=== PATIENT | male | born 1985 | race African-American/Black ===

== ENCOUNTER 2018-04-14 10:23 | Emergency (ER) | payer SELFPAY ==
[2018-04-14] MEDS ORDERED: HYDROCODONE/ACETAMINOPHEN 5-325 MG (6 TAB/ER DISP) PO PRN (12:42)
--- NOTE | 2018-04-14 12:48 | ER Document Report ---
ED General - General Chief Complaint: Abscess Stated Complaint: POSSIBLE CYST Time Seen by Provider: 04/14/18 12:25 Mode of Arrival: Ambulatory Information source: Patient - HPI Notes: 33-year-old male presents the ED with complaints of left buttocks that started approximately 1 week ago. Reports pain is 6 out of 10, throbbing achy. Has not tried any heat, ibuprofen or Tylenol. Worse with time, nothing makes better. Patient states he had a similar event happened approximately 10 years ago, but cannot remember what he did for him. Denies fevers, chills, chest pain,palpitations, shortness of breath, dyspnea, nausea, vomiting, diarrhea, abdominal pain, hematuria,blurred vision, double vision, loss of vision, speech changes, LH, dizziness, syncope, headaches, wheezing, ST, URI, neck pain, weakness, bowel or bladder dysfunction, saddle anesthesia, numbness or tingling in bilateral upper or lower extremities equally, muscle paralysis, weakness in bilateral upper or lower extremities equally or rash. Denies IV drug use. - Related Data Allergies/Adverse Reactions: No Known Allergies Allergy (Verified 04/14/18 10:27) Past Medical History - General Information source: Patient - Social History Smoking Status: Current Every Day Smoker Frequency of alcohol use: Heavy Drug Abuse: Marijuana Family History: Reviewed & Not Pertinent Patient has suicidal ideation: No Patient has homicidal ideation: No - Past Medical History Cardiac Medical History: Denies: Hx Hypertension Renal/ Medical History: Denies: Hx Peritoneal Dialysis - Immunizations Hx Diphtheria, Pertussis, Tetanus Vaccination: No Review of Systems - Review of Systems Constitutional: No symptoms reported EENT: No symptoms reported Cardiovascular: No symptoms reported Respiratory: No symptoms reported Gastrointestinal: No symptoms reported Genitourinary: No symptoms reported Male Genitourinary: No symptoms reported Musculoskeletal: No symptoms reported Skin: See HPI Hematologic/Lymphatic: No symptoms reported Neurological/Psychological: No symptoms reported Physical Exam - Vital signs Vitals: Temp Pulse Resp BP Pulse Ox 98.8 F 75 14 145/90 H 99 04/14/18 10:32 04/14/18 10:32 04/14/18 10:32 04/14/18 10:32 04/14/18 10:32 - Notes Notes: PHYSICAL EXAMINATION: GENERAL: Well-appearing, well-nourished and in no acute distress. HEAD: Atraumatic, normocephalic. EYES: Pupils equal round and reactive to light, extraocular movements intact, sclera anicteric, conjunctiva are normal. ENT: Nares patent, oropharynx clear without exudates. Moist mucous membranes. NECK: Normal range of motion, supple without lymphadenopathy LUNGS: Breath sounds clear to auscultation bilaterally and equal. No wheezes rales or rhonchi. HEART: Regular rate and rhythm without murmurs ABDOMEN: Soft, nontender, nondistended abdomen. No guarding, no rebound. No masses appreciated. Musculoskeletal: Normal range of motion, no pitting or edema. No cyanosis. NEUROLOGICAL: Cranial nerves grossly intact. Normal speech, normal gait. Normal sensory, motor exams PSYCH: Normal mood, normal affect. SKIN: Warm, Dry, normal turgor, no rashes or lesions noted. Left buttocks approx [id number] area of induration, warmth to touch. no fluctuance noted. no surrounding erythema or lymphadenopathy. No open wounds or drainage. Course - Re-evaluation Re-evalutation: 04/14/18 12:53 33-year-old male who is afebrile, vitals stable and in no distress presents for evaluation of a cellulitis to his left buttocks. Noted induration with some erythema, no fluctuance. No surrounding lymphadenopathy or erythema. No open wounds. Discussed with patient the importance of applying heat 20 minutes on 20 minutes several times a day, taking antibiotics as directed patient will be given [place]ona to be going home with. Discussed with patient the importance of not driving, drinking alcohol or operate heavy machinery while taking medication. I have reevaluated this patient multiple times and no significant life threatening changes, no signs of toxicity, sepsis or peritonitis are noted. The patient and I have discussed the diagnosis and risks, and we agree with discharging home and close follow-up. We also discussed returning to the Emergency Department immediately if new or worsening symptoms occur with the understanding that symptoms and presentations can change. At this time will discharge with return precautions and follow-up recommendations. Verbal discharge instructions given a the bedside and opportunity for questions given. We have discussed the symptoms which are most concerning (e.g., saddle anesthesia, urinary or bowel incontinence or retention, changing or worsening pain) that necessitate immediate return. Medication warnings reviewed. All questions and concerns answered by this provider. Patient is in agreement with this plan and has verbalized understanding of return precautions and the need for primary care follow-up in the next 24-72 hours. Patient verbalized understanding of plan of care and agree with plan of care. - Vital Signs Vital signs: Temp Pulse Resp BP Pulse Ox 98.8 F 75 14 145/90 H 99 04/14/18 10:32 04/14/18 10:32 04/14/18 10:32 04/14/18 10:32 04/14/18 10:32 Discharge - Discharge Clinical Impression: Cellulitis and abscess of buttock Condition: Stable Disposition: HOME, SELF-CARE Instructions: Cephalexin ([facility]), Trimethoprim-Sulfa ([facility]), Oral Narcotic Medication ([facility]) Additional Instructions: CELLULITIS: You have an infection of your skin and underlying soft tissues called cellulitis. This is due to bacteria, which can enter through any break in the skin, or even through an irritated hair follicle. Untreated, cellulitis will usually worsen. Antibiotics are required. Usually, warm packs or warm soaks, and elevation of the infected area are recommended. You should start getting better within 24 to 36 hours. Most infections respond quickly to the right medication. Follow-up care is important, however, to check for abscess (boil) formation, unsuspected foreign body, or resistant infection. If you develop fever, chills, or if the area of infection is becoming rapidly more swollen or painful, call the doctor at once. ANTIBIOTIC THERAPY: You have been given an antibiotic prescription. It's important that you take all the medication, unless instructed otherwise by your physician. Failure to complete the entire course can result in relapse of your condition. Common side effects of antibiotics include nausea, intestinal cramping, or diarrhea. Women may develop vaginal yeast infections, and babies can get yeast (thrush) in the mouth following the use of antibiotics. Contact your physician if you develop significant side effects from this medication. Allergy to this antibiotic can result in hives, wheezing, faintness, or itching. If symptoms of allergy occur, stop the medication and call the doctor. TRIMETHOPRIM-SULFA: You have been given a prescription for trimethoprim-sulfa (TMS, Septra, Bactrim). This is a combination antibiotic of the sulfa class, often used for urinary tract infections, middle ear infections, bronchitis, shigella intestinal infection, and Pneumocystis pneumonia. TMS is usually well-tolerated. Occasional side effects include nausea and decreased appetite. Septra is not recommended for infants less than two months of age. Do not take this medication if you have experienced severe side effects or allergy to sulfa medicine. You should stop this medicine at once and contact your physician if you develop any rash, joint pain, shortness of breath, bruising, or jaundice ( yellow color in the skin), or if you develop any other new or unusual symptoms. ORAL NARCOTIC MEDICATION: You have been given a prescription for pain control. This medication is a narcotic. It's best taken with food, as nausea can result if taken on an empty stomach. Don't operate machinery or drive within six hours of taking this medication. Do not combine this medicine with alcohol, or with any medication which can cause sedation (such as cold tablets or sleeping pills) unless you get permission from the physician. Narcotics tend to cause constipation. If possible, drink plenty of fluids and eat a diet high in fiber and fruits. Please be aware that prescription narcotics also have the potential for abuse. People become addicted to these medications because of the general sense of wellbeing that they induce. This feeling along with a significant reduction in tension, anxiety, and aggression provides a stimulating seductive quality to these drugs. Once your pain is under control, we encourage you to discard your unused narcotics. Apply heat 20 minutes on 20 minutes off several times a day. Do not drive, drink or operate heavy machinery while taking pain medication. Eat yogurt daily to prevent loose stool. Follow-up with your doctor within 1-2 days. Return to the ED if your symptoms become worse. FOLLOW-UP CARE: If you have been referred to a physician for follow-up care, call the physician s office for an appointment as you were instructed or within the next two days. If you experience worsening or a significant change in your symptoms, notify the physician immediately or return to the Emergency Department at any time for re-evaluation. Return immediately for any new or worsening symptoms. Follow up with primary care provider, call tomorrow to make followup appointment. Referrals: LUIS,NO [Primary Care Provider] - Follow up as needed CASPER TODD MD [COMMUNITY BASED STAFF] - Follow up in 3-5 days
[2018-04-14 13:42] VITALS: BP 137/95
== END 2018-04-14 13:42 | disposition home or self-care (01) ==
LOC: ER 10:23
DX: L03.317 Cellulitis of buttock (principal); L02.31 Cutaneous abscess of buttock; F17.200 Nicotine dependence, unspecified, uncomplicated; F12.10 Cannabis abuse, uncomplicated
CPT/HCPCS: 99282

== ENCOUNTER 2018-04-16 11:21 | Emergency (ER) | payer SELFPAY ==
[2018-04-16] MEDS ORDERED: LIDOCAINE 1% INJ-PF (10 MG/ML) 30 ML SDV INJ ONE (11:51)
--- NOTE | 2018-04-16 13:11 | ER Document Report ---
ED General - General Chief Complaint: Abscess Stated Complaint: SKIN ISSUE Time Seen by Provider: 04/16/18 11:37 Mode of Arrival: Ambulatory Information source: Patient Notes: Patient is a 33-year-old male who presents to the ER today for worsening of abscess and cellulitis to the right buttock. Patient was here 2 days ago, given Bactrim and Keflex and is currently taking not but states that his abscess to the top of his buttock is getting worse, more painful. He denies any drainage, history of MRSA. He has had an abscess in this exact same place at the top of his buttock before that was drained 7 years ago. He does not know if it is a pilonidal. He denies fevers or chills. TRAVEL OUTSIDE OF THE [place] IN LAST 30 DAYS: No - Related Data Allergies/Adverse Reactions: No Known Allergies Allergy (Verified 04/16/18 11:22) Past Medical History - General Information source: Patient - Social History Smoking Status: Unknown if Ever Smoked Family History: Reviewed & Not Pertinent Patient has suicidal ideation: No Patient has homicidal ideation: No - Past Medical History Cardiac Medical History: Denies: Hx Hypertension Renal/ Medical History: Denies: Hx Peritoneal Dialysis - Immunizations Hx Diphtheria, Pertussis, Tetanus Vaccination: No Review of Systems - Review of Systems Constitutional: No symptoms reported EENT: No symptoms reported Cardiovascular: No symptoms reported Respiratory: No symptoms reported Gastrointestinal: No symptoms reported Genitourinary: No symptoms reported Male Genitourinary: No symptoms reported Musculoskeletal: No symptoms reported Skin: See HPI Hematologic/Lymphatic: No symptoms reported Neurological/Psychological: No symptoms reported Physical Exam - Vital signs Vitals: Temp Pulse Resp BP Pulse Ox 98.6 F 80 16 145/88 H 97 04/16/18 11:25 04/16/18 11:25 04/16/18 11:25 04/16/18 11:25 04/16/18 11:25 - Notes Notes: PHYSICAL EXAMINATION: GENERAL: Uncomfortable appearing, but in no acute distress. HEAD: Atraumatic, normocephalic. EYES: Pupils equal round and reactive to light, extraocular movements intact, sclera anicteric, conjunctiva are normal. NECK: Normal range of motion, supple without lymphadenopathy LUNGS: CTAB and equal. No wheezes rales or rhonchi. HEART: Regular rate and rhythm without murmurs EXTREMITIES: Normal range of motion, no pitting edema. No cyanosis. NEUROLOGICAL: Cranial nerves grossly intact. Normal sensory/motor exams. PSYCH: Normal mood, normal affect. SKIN: Warm, Dry, normal turgor, large area of induration, approximately 5 cm x 4 cm to the right buttocks at the gluteal cleft, approximately 3 cm of fluctuance overlying the center, exquisitely tender, warm to the touch Course - Re-evaluation Re-evalutation: 04/16/18 15:53 Abscess was incised and drained successfully, wound culture is pending at this time. - Vital Signs Vital signs: Temp Pulse Resp BP Pulse Ox 98.1 F 75 16 144/87 H 100 04/16/18 13:32 04/16/18 13:32 04/16/18 11:25 04/16/18 13:32 04/16/18 13:32 Procedures - Incision and Drainage Right Buttock Time completed: 14:30 Type: Simple Anesthetic type: 1% Lidocaine mL's of anesthetic: 4 Blade size: 11 I&D procedure: Betadine prep applied Incision Method: Incision made by scalpel Amount/type of drainage: malodorous copious pus Discharge - Discharge Clinical Impression: Cellulitis and abscess of buttock Condition: Stable Disposition: HOME, SELF-CARE Instructions: Abscess ([facility]), Cephalexin ([facility]), Oral Narcotic Medication ([facility]), Post Incision and Drainage, Trimethoprim-Sulfa ([facility]) Additional Instructions: Return immediately for any new or worsening symptoms. Follow up with primary care provider, call tomorrow to make followup appointment. Please return in 2 days to have wound looked at and packing removed if the packing has not fallen out on its own already. Prescriptions: Hydrocodone/Acetaminophen [[place] 5-325 mg Tablet] 1 tab PO Q4 PRN #15 tablet PRN Reason: Forms: Return to Work
[2018-04-16] MEDS ORDERED: HYDROCODONE/ACETAMINOPHEN 5-325 MG TABLET PO ONE (13:12)
[2018-04-16 13:33] VITALS: BP 144/87
== END 2018-04-16 13:42 | disposition home or self-care (01) ==
LOC: ER 11:21
DX: L02.31 Cutaneous abscess of buttock (principal); L03.317 Cellulitis of buttock
CPT/HCPCS: 87070; 87075; 87077; 87205; 99283

== ENCOUNTER 2019-09-26 15:46 | Emergency (ER) | payer SELFPAY ==
--- NOTE | 2019-09-26 16:01 | ER Document Report ---
HPI - HPI Time Seen by Provider: 09/26/19 15:58 Pain Level: 5 Notes: Otherwise healthy 34-year-old male presenting with right foot pain after he states he accidentally kicked a fixed object this morning. He reports pain to the front and dorsal aspect of the right foot. Denies taking any medications for symptoms. He is able to ambulate on the foot. - REPRODUCTIVE Reproductive: DENIES: : Past Medical History - General Information source: Patient - Social History Smoking Status: Current Every Day Smoker Chew tobacco use (# tins/day): No Frequency of alcohol use: Heavy Drug Abuse: Marijuana Family History: Reviewed & Not Pertinent Patient has suicidal ideation: No Patient has homicidal ideation: No - Medical History Medical History: Negative - Past Medical History Cardiac Medical History: Denies: Hx Hypertension Renal/ Medical History: Denies: Hx Peritoneal Dialysis Surgical Hx: Negative - Immunizations Hx Diphtheria, Pertussis, Tetanus Vaccination: No Vertical Provider Document - CONSTITUTIONAL Notes: PHYSICAL EXAMINATION: GENERAL: Well-appearing, well-nourished and in no acute distress. HEAD: Atraumatic, normocephalic. EYES: Pupils equal round extraocular movements intact, conjunctiva are normal. ENT: Nares patent NECK: Normal range of motion LUNGS: No respiratory distress Musculoskeletal: Normal range of motion, no swelling, ecchymosis or erythema noted to right foot, strong dorsalis pedis pulse, cap refill less than 3 seconds. NEUROLOGICAL: Normal speech, normal gait. PSYCH: Normal mood, normal affect. SKIN: Warm, Dry, normal turgor, no rashes or lesions noted. - INFECTION CONTROL TRAVEL OUTSIDE OF THE [place] IN LAST 30 DAYS: No Course - Re-evaluation Re-evalutation: Foot X-Ray 09/26/19 16:00 IMPRESSION: NEGATIVE STUDY OF THE RIGHT FOOT. NO RADIOGRAPHIC EVIDENCE OF ACUTE INJURY. X-ray was negative for any acute findings. Patient only discharged home at this time. Discussed ED return precautions. - Vital Signs Vital signs: Temp Pulse Resp BP Pulse Ox 98.1 F 89 18 146/88 H 99 09/26/19 15:49 09/26/19 15:49 09/26/19 15:49 09/26/19 15:49 09/26/19 15:49 Procedures - Immobilization Right foot Immobilizer type: Crutches, Post-op shoe Discharge - Discharge Clinical Impression: Foot contusion Qualifiers: Encounter type: initial encounter Laterality: unspecified laterality Qualified Code(s): S90.30XA - Contusion of unspecified foot, initial encounter Condition: Stable Disposition: HOME, SELF-CARE Additional Instructions: Contusion Your injury has resulted in a contusion -- a crushing of the deep tissues. No injury to important structures was detected during the physician's exam. Contusions vary in the amount of pain they cause, and in the length of time required for healing. Typically, the area will become bruised, and will remain painful to touch for two or three weeks. However, most patients are back to working and playing within a few days. After the initial period of rest and cold-packs, your symptoms (together with the doctor's recommendations) will determine how rapidly you can get back to full activity. Usually this means "do what feels okay, but don't do things that hurt." If re-examination was recommended, it's important to follow up as instructed. Call the doctor or return any time if pain increases, if swelling becomes severe, if you develop numbness or weakness in an injured extremity, or if any other alarming symptoms occur. Ice & Elevation Apply ice packs frequently against the painful area. Many different schedules are recommended, such as "20 minutes on, 20 minutes off" or "one hour ice, two hours rest." If you need to work, you may need to go longer between ice treatments. You should plan to have the area ice packed AT LEAST one-fourth of the time. The ice should be applied over the wrap, tape, or splint, or over a layer of cloth -- not directly against the skin. Some ice bags have a built-in cloth and can be put directly on the skin. Your injured part should be elevated as much as possible over the next 48 hours. Try to keep the injury above the level of the heart. Avoid use of the injured area. Elevation and rest will decrease the swelling. Ibuprofen Ibuprofen is an excellent, safe drug for pain control. In addition, it has potent antiinflammatory effects which are beneficial, especially in the treatment of injuries, arthritis, or tendonitis. It's best to take ibuprofen with food. Persons with ulcer disease or allergy to aspirin should notify their physician of this before taking ibuprofen. Take the medication exactly as prescribed. Don't take additional doses unless instructed to do so by your doctor. If you develop wheezing, shortness of breath, hives, faintness, stomach pain, vomiting, or dark black stools, return for re-evaluation at once. The x-rays were negative for any fracture or dislocation. Please take ibuprofen [id number] as directed to help with pain and inflammation. Follow-up with Ortho if not improving over the next week. Forms: Return to Work Referrals: ROSA ISELA BLUNT JR, DO [ACTIVE PROVISIONAL STAFF] - Follow up as needed
--- NOTE | 2019-09-26 16:47 | RADIOLOGY REPORT (SQ) ---
EXAM DESCRIPTION: FOOT RIGHT COMPLETE COMPLETED DATE/TIME: 09/26/2019 4:26 pm REASON FOR STUDY: kicked a couch COMPARISON: None. NUMBER OF VIEWS: Three views. TECHNIQUE: AP, lateral and oblique radiographic images acquired of the right foot. LIMITATIONS: None. FINDINGS: MINERALIZATION: Normal. BONES: No acute fracture or dislocation. No worrisome bone lesions. JOINTS: No effusions. SOFT TISSUES: No soft tissue swelling. No foreign body. OTHER: No other significant finding. IMPRESSION: NEGATIVE STUDY OF THE RIGHT FOOT. NO RADIOGRAPHIC EVIDENCE OF ACUTE INJURY. TECHNICAL DOCUMENTATION: JOB ID: [id number] [employer]- All Rights Reserved Reading location - IP/workstation name: [email or web address]
[2019-09-26 17:40] VITALS: BP 144/82
== END 2019-09-26 17:41 | disposition home or self-care (01) ==
LOC: ER 15:46
DX: S90.30XA Contusion of unspecified foot, initial encounter (principal); W22.09XA Striking against other stationary object, initial encounter; F17.200 Nicotine dependence, unspecified, uncomplicated
CPT/HCPCS: 99283

== ENCOUNTER 2020-05-06 13:46 | Emergency (ER) | payer SELFPAY ==
[2020-05-06] MEDS ORDERED: LIDOCAINE 1% INJ-PF (10 MG/ML) 30 ML SDV INJ ONE (14:02)
--- NOTE | 2020-05-06 14:04 | ER Document Report ---
ED Medical Screen (RME) - General Chief Complaint: Skin Problem Stated Complaint: ABSCESS/LOW BACK Time Seen by Provider: 05/06/20 13:52 Mode of Arrival: Ambulatory Information source: Patient Notes: HPI; 35-year-old male presents to the emergency room complaining of an abscess to his lower back near his buttock area. States he noticed it about 4 days ago. Has been taking ibuprofen and doing warm showers without relief. History of previous abscess about 4 years ago that had to be lanced. PE: Alert and oriented x3. Mild distress noted. Lungs: Clear to auscultation without rales, rhonchi, wheezes. Heart: Regular rate rhythm without murmurs, rubs, gallops. Unable to assess abscess in triage. I have greeted and performed a rapid initial assessment of this patient. A comprehensive ED assessment and evaluation of the patient, analysis of test results and completion of the medical decision making process will be conducted by additional ED providers. I have specifically instructed the patient or family members with the patient to immediately return to any nursing staff should anything change in the patient's condition or with their chief complaint. 35-year-old male presents emergency room complaining of abscess TRAVEL OUTSIDE OF THE [place] IN LAST 30 DAYS: No - Related Data Allergies/Adverse Reactions: No Known Allergies Allergy (Verified 04/16/18 11:22) Past Medical History - Social History Chew tobacco use (# tins/day): No Frequency of alcohol use: None Drug Abuse: None - Past Medical History Cardiac Medical History: Denies: Hx Hypertension Renal/ Medical History: Denies: Hx Peritoneal Dialysis - Immunizations Hx Diphtheria, Pertussis, Tetanus Vaccination: No Physical Exam - Vital signs Vitals: Temp Pulse Resp BP Pulse Ox 98.7 F 88 18 140/83 H 99 05/06/20 13:56 05/06/20 13:56 05/06/20 13:56 05/06/20 13:56 05/06/20 13:56 Course - Vital Signs Vital signs: Temp Pulse Resp BP Pulse Ox 98.7 F 88 18 140/83 H 99 05/06/20 13:56 05/06/20 13:56 05/06/20 13:56 05/06/20 13:56 05/06/20 13:56
[2020-05-06] MEDS ORDERED: PROMETHAZINE HCL 25 MG TABLET PO ONE (20:14)
[2020-05-06] MEDS ORDERED: OXYCODONE-ACETAMINOPHEN 5-325 MG TABLET PO ONE (20:14)
--- NOTE | 2020-05-06 20:15 | ER Document Report ---
ED Skin Rash/Insect Bite/Abscs - General Chief Complaint: Skin Problem Stated Complaint: ABSCESS/LOW BACK Time Seen by Provider: 05/06/20 13:52 Primary Care Provider: [facility] [Provider Group] - Follow up as needed Mode of Arrival: Ambulatory Notes: Patient is a 35-year-old male that comes to the emergency department for chief complaint of a painful area in the left upper buttock that has been worsening over the past several days, he states is painful to sit on the area, he states that he has had the same thing several times in the past and he has had this lanced twice over the years. He denies drainage from the area, fever/chills, nausea/vomiting, or any other complaints. He denies any daily medications or past medical history otherwise. TRAVEL OUTSIDE OF THE [place] IN LAST 30 DAYS: No - Related Data Allergies/Adverse Reactions: No Known Allergies Allergy (Verified 04/16/18 11:22) Past Medical History - General Information source: Patient - Social History Smoking Status: Never Smoker Chew tobacco use (# tins/day): No Frequency of alcohol use: None Drug Abuse: None Family History: Reviewed & Not Pertinent Patient has homicidal ideation: No - Past Medical History Cardiac Medical History: Denies: Hx Hypertension Renal/ Medical History: Denies: Hx Peritoneal Dialysis - Immunizations Hx Diphtheria, Pertussis, Tetanus Vaccination: Yes Review of Systems - Review of Systems Constitutional: No symptoms reported EENT: No symptoms reported Cardiovascular: No symptoms reported Respiratory: No symptoms reported Gastrointestinal: No symptoms reported Genitourinary: No symptoms reported Male Genitourinary: No symptoms reported Musculoskeletal: No symptoms reported Skin: See HPI Hematologic/Lymphatic: No symptoms reported Neurological/Psychological: No symptoms reported Physical Exam - Vital signs Vitals: Temp Pulse Resp BP Pulse Ox 98.7 F 88 18 140/83 H 99 05/06/20 13:56 05/06/20 13:56 05/06/20 13:56 05/06/20 13:56 05/06/20 13:56 - Notes Notes: GENERAL: Alert, interacts well. No acute distress. HEAD: Normocephalic, atraumatic. EYES: Pupils equal, round, and reactive to light. Extraocular movements intact. ENT: Oral mucosa moist, tongue midline. Oropharynx unremarkable. Airway patent. LUNGS: Clear to auscultation bilaterally, no wheezes, rales, or rhonchi. No respiratory distress. Non-tender chest wall. HEART: Regular rate and rhythm. No murmur ABDOMEN: Soft, non-tender. Non-distended. EXTREMITIES: Moves all 4 extremities spontaneously. No edema, normal radial and dorsalis pedis pulses bilaterally. No cyanosis. BACK: no cervical, thoracic, lumbar midline tenderness. No saddle anesthesia, normal distal neurovascular exam. Moves all extremities in full range of motion. NEUROLOGICAL: Alert and oriented x3. Normal speech. Cranial nerves II through XII grossly intact. Strength 5/5 in all extremities. PSYCH: Normal affect, normal mood. SKIN: At the top of the right gluteal cleft there is an obvious indurated, fluctuant pilonidal cyst abscess although there is not significant surrounding cellulitis or streaking away from the area. No other concerning skin findings. No evidence of perianal involvement. Course - Re-evaluation Re-evalutation: Patient with a pilonidal cyst abscess, this was drained with a lot of drainage, discussed care, provided with antibiotics, discussed general surgery follow-up because this has happened repeatedly. Discussed return precautions. Patient and state appreciation and agreement with plan. - Vital Signs Vital signs: Temp Pulse Resp BP Pulse Ox 98.2 F 82 18 148/92 H 99 05/06/20 21:40 05/06/20 21:40 05/06/20 21:40 05/06/20 21:40 05/06/20 21:40 Procedures - Incision and Drainage Right pilonidal cyst abscess Type: Single Anesthetic type: 1% Lidocaine mL's of anesthetic: 8 Blade size: 11 I&D procedure: Shurclens applied, Sterile dressing applied Incision Method: Incision made by scalpel Amount/type of drainage: Large amount of purulent drainage Discharge - Discharge Clinical Impression: Pilonidal cyst with abscess Disposition: HOME, SELF-CARE Additional Instructions: The cyst has been drained, keep absorbent dressing over the area, clean area with soap and water, and rest. Take antibiotic as prescribed, take pain medication only if needed, consider [id number] stool softener to avoid constipation from this. Follow-up with the surgical clinic referral because this continues to occur. Return if you worsen including severe worsening s welling or pain, spreading redness, fever, or any other concerning or worsening symptoms. Prescriptions: Sulfamethoxazole/Trimethoprim [Bactrim Ds Tablet] 1 each PO BID #14 tablet Oxycodone HCl/Acetaminophen [Percocet 5-325 mg Tablet] 1 tab PO TID PRN #12 tab PRN Reason: Forms: Return to Work Referrals: [facility] [Provider Group] - Follow up as needed
[2020-05-06] MEDS ORDERED: LIDOCAINE 1% INJ-PF (10 MG/ML) 30 ML SDV ONE (20:21)
[2020-05-06] MEDS ORDERED: SULFAMETHOXAZOLE/TRIMETHOPRIM 800-160 MG TABLET PO ONE (21:28)
[2020-05-06] MEDS ORDERED: HYDROCODONE/ACETAMINOPHEN 5-325 MG (6 TAB/ER DISP) PO PRN (21:28)
[2020-05-06 21:41] VITALS: BP 148/92
== END 2020-05-06 21:49 | disposition home or self-care (01) ==
LOC: ER 13:46
DX: L05.01 Pilonidal cyst with abscess (principal); M54.6 Pain in thoracic spine
CPT/HCPCS: 99283; 10080; J3490

== ENCOUNTER 2020-10-13 15:53 | Emergency (ER) | payer SELFPAY ==
[2020-10-13] MEDS ORDERED: TETRACAINE HCL 0.5% OPH SOLN 4 ML OD ONE (17:47)
[2020-10-13] MEDS ORDERED: KETOROLAC TROMETHAMINE 0.45% 4 DROP/0.4 ML DROPERETTE OD ONE (18:50)
[2020-10-13] MEDS ORDERED: ERYTHROMYCIN 0.5% OPH OINTMENT 3.5 GM TUBE OD ONE (18:51)
--- NOTE | 2020-10-13 19:52 | ER Document Report ---
ED Eye Complaint - General Chief Complaint: Eye Problem Stated Complaint: RIGHT EYE IRRITATION, REDNESS Time Seen by Provider: 10/13/20 17:43 Primary Care Provider: DEANA FRANCES DO [ACTIVE STAFF] - Follow up as needed Mode of Arrival: Ambulatory Information source: Patient Notes: Patient is a 35-year-old male comes emergency room plantar right eye redness and tearing. Patient also states he has had some crusting noted. Stated that it started approximately yesterday. Patient works at [employer] and denies any known traumatic events. Patient does not wear glasses or contacts. Denies any visual problems at this time. TRAVEL OUTSIDE OF THE [place] IN LAST 30 DAYS: No - HPI Onset: Yesterday Eye location: Right Injury: No Quality of pain: Other - Itching. denies: Pressure, Stabbing Severity: Moderate Pain Level: 3 Exposure: Conjunctivitis. No: Alkaline chemical, Acidic chemical, Unknown chemical, Direct trauma, Projectile Safety glasses worn: No Contact lenses worn: No Associated symptoms: Itching - Related Data Allergies/Adverse Reactions: No Known Allergies Allergy (Verified 04/16/18 11:22) Past Medical History - General Information source: Patient - Social History Smoking Status: Current Every Day Smoker Chew tobacco use (# tins/day): No Frequency of alcohol use: Social Drug Abuse: None Lives with: Family Family History: Reviewed & Not Pertinent - Past Medical History Cardiac Medical History: Denies: Hx Hypertension Renal/ Medical History: Denies: Hx Peritoneal Dialysis - Immunizations Hx Diphtheria, Pertussis, Tetanus Vaccination: Yes Review of Systems - Review of Systems Constitutional: No symptoms reported EENT: Eye discharge, Tearing. denies: Blurred vision, Double vision, Nose congestion, Sinus pressure, Sinus discharge Cardiovascular: No symptoms reported Respiratory: No symptoms reported Gastrointestinal: No symptoms reported Genitourinary: No symptoms reported Male Genitourinary: No symptoms reported Musculoskeletal: No symptoms reported Skin: No symptoms reported Hematologic/Lymphatic: No symptoms reported Neurological/Psychological: No symptoms reported -: Yes All other systems reviewed and negative Physical Exam - Vital signs Vitals: Temp Pulse Resp BP Pulse Ox 98.8 F 104 H 16 150/90 H 98 10/13/20 15:59 10/13/20 15:59 10/13/20 15:59 10/13/20 15:59 10/13/20 15:59 Interpretation: Hypertensive, Tachycardic - Notes Notes: PHYSICAL EXAMINATION: GENERAL: Well-appearing, well-nourished and in no acute distress. HEAD: Atraumatic, normocephalic. EYES: Examination patient's area concern is his right eye. Examination shows the conjunctiva to be injected. Clear tearing is noted with no crusting noted at this time. ENT: Nares patent, oropharynx clear without exudates. Moist mucous membranes. NECK: Normal range of motion, supple without lymphadenopathy LUNGS: Breath sounds clear to auscultation bilaterally and equal. No wheezes rales or rhonchi. HEART: Tachycardic rate and rhythm without murmurs NEUROLOGICAL: Normal speech, normal gait. Normal sensory, motor exams PSYCH: Normal mood, normal affect. SKIN: Warm, Dry, normal turgor, no rashes or lesions noted. Course - Re-evaluation Re-evalutation: 10/14/20 00:57 Eye exam procedure was done using tetracaine eyedrops in the right eye with fluorescein stain and checked under Lester lamp with no sign of any type of any corneal abrasions. Lids were flipped no sign of foreign bodies. Normal saline flush was used after the fluorescein stain. And then I performed a slit lamp exam on patient's right eye and noticed some possible inflammation of the sclera. Visual acuity was within normal limits. I have placed patient on some erythromycin ointment as well as some ketorolac eyedrops for the scleritis and having patient follow-up with ophthalmology. 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 Alternate the 2 every 2 hours over the first 24 and then go to every 4 hours after that. I am giving you the name of the private client advisor lemon picker today if you are not getting better in 24 hours I highly suggest that you contact them to see if they can accommodate you. Should you have any concerns or problems or if the vision gets worse return to ER for reevaluation. Prescriptions: Ketorolac Tromethamine 0.45% [Acuvail 0.45% Oph Soln 0.4 ml/Dropperette] 1 drop OD BID #1 bottle Forms: Elevated Blood Pressure, Smoking Cessation Education, Return to Work Referrals: DAENA FRANCES DO [ACTIVE STAFF] - Follow up as needed
[2020-10-13 20:19] VITALS: BP 132/86
== END 2020-10-13 20:18 | disposition home or self-care (01) ==
LOC: ER 15:53
DX: H10.9 Unspecified conjunctivitis (principal); H15.001 Unspecified scleritis, right eye; F17.200 Nicotine dependence, unspecified, uncomplicated; R00.0 Tachycardia, unspecified
CPT/HCPCS: 99283; J3490 ×2

== ENCOUNTER 2020-10-19 07:11 | Emergency (ER) | payer SELFPAY ==
[2020-10-19 07:19] VITALS: BP 147/89
--- NOTE | 2020-10-19 07:44 | ER Document Report ---
ED General - General Chief Complaint: Redness of Eye Stated Complaint: VISION LOSS Time Seen by Provider: 10/19/20 07:44 Notes: Patient is a 35-year-old male that presents to the emergency department for chief complaint of right eye redness and pain. Patient states he has been having redness in his eye for 5 to 6 days now, seen in the emergency department for the same about 5 days ago, was placed on antibiotic eyedrops, and ketorolac eyedrops, but he states he has been using them and still having pain and he thinks is getting worse, he has some blurred vision associated with this as well, and some swelling around his right eye. Denies having any fevers, chills or night sweats, nausea, vomiting or abdominal pain. Past Medical History: Reviewed, not pertinent Past Surgical History: Reviewed, not pertinent Social History: Patient smokes cigarettes, denies frequent alcohol or drug use. Family History: Reviewed and noncontributory for presenting illness Allergies: Reviewed, see documented allergy list. REVIEW OF SYSTEMS: Other than noted above, the 12 point review of systems was reviewed with the patient and were negative, all pertinent findings are included in the HPI. PHYSICAL EXAMINATION: Vital signs reviewed, nursing noted reviewed. GENERAL: Well-appearing, well-nourished and in no acute distress. HEAD: Atraumatic, normocephalic. EYES: Bilateral conjunctival injection, worse in the right compared to the left, with mild preseptal edema, without erythema or tenderness. On fluorescein dye exam, patient was noted to have punctate corneal irritation, consistent with a keratitis. Intraocular pressures, were 17 bilaterally. ENT: Moist mucous membranes. NECK: Normal range of motion, supple without lymphadenopathy LUNGS: Breath sounds clear to auscultation bilaterally and equal. No wheezes rales or rhonchi. HEART: Regular rate and rhythm without murmurs EXTREMITIES: Nontender, good range of motion, no pitting or edema. NEUROLOGICAL: No focal neurological deficits. Moves all extremities spontaneou sly Motor and sensory grossly intact on exam. PSYCH: Normal mood, normal affect. SKIN: Warm, Dry, normal turgor, no rashes or lesions noted on exposed skin TRAVEL OUTSIDE OF THE [place] IN LAST 30 DAYS: No - Related Data Allergies/Adverse Reactions: No Known Allergies Allergy (Verified 10/19/20 07:36) Home Medications: medications prescribed in the ED last week for eye pain and drainiage. Past Medical History - Social History Smoking Status: Current Every Day Smoker Chew tobacco use (# tins/day): No Frequency of alcohol use: Social Drug Abuse: Marijuana Family History: Reviewed & Not Pertinent - Past Medical History Cardiac Medical History: Denies: Hx Hypertension Renal/ Medical History: Denies: Hx Peritoneal Dialysis - Immunizations Hx Diphtheria, Pertussis, Tetanus Vaccination: Yes Physical Exam - Vital signs Vitals: Temp Pulse Resp BP Pulse Ox 98.2 F 86 14 147/89 H 97 10/19/20 07:14 10/19/20 07:14 10/19/20 07:14 10/19/20 07:14 10/19/20 07:14 Course - Re-evaluation Re-evalutation: Patient seen and examined, vital signs reviewed, on exam patient was noted to have conjunctival injection, worse on the right compared to the left, fluorescein dye exam, was consistent with a keratitis, patient likely has acute viral conjunctivitis, complicated with keratitis, strong advised to follow-up with ophthalmology who was previously referred to. And was prescribed doxycycline to cover for possible superinfection given here preseptal edema. Patient rested and agreed with this plan of care and was discharged home. - Vital Signs Vital signs: Temp Pulse Resp BP Pulse Ox 98.2 F 86 14 147/89 H 97 10/19/20 07:14 10/19/20 07:14 10/19/20 07:14 10/19/20 07:14 10/19/20 07:14 - Laboratory Results Critical Laboratory Results Reviewed: No Critical Results - Radiology Results Critical Radiology Results Reviewed: No Critical Results Discharge - Discharge Clinical Impression: Keratitis Conjunctivitis Qualifiers: Conjunctivitis type: acute Acute conjunctivitis type: unspecified Laterality: right Qualified Code(s): H10.31 - Unspecified acute conjunctivitis, right eye Condition: Stable Disposition: HOME, SELF-CARE Instructions: Conjunctivitis ([facility]) Additional Instructions: Please complete the course of antibiotics as prescribed, and please follow-up with the medical auditor on your previous paperwork, to schedule an appointment. Please call today. Prescriptions: Doxycycline Hyclate [Vibramycin] 100 mg PO BID 7 Days #14 capsule
[2020-10-19] MEDS ORDERED: TETRACAINE HCL 0.5% OPH SOLN 4 ML OD ONE (07:55)
[2020-10-19] MEDS ORDERED: DOXYCYCLINE HYCLATE 100 MG TABLET PO ONE (07:56)
== END 2020-10-19 08:20 | disposition home or self-care (01) ==
LOC: ER 07:11
DX: H10.31 Unspecified acute conjunctivitis, right eye (principal); H57.11 Ocular pain, right eye; F17.200 Nicotine dependence, unspecified, uncomplicated
CPT/HCPCS: 99283; J3490

== ENCOUNTER 2020-11-25 13:55 | Emergency (ER) | payer SELFPAY ==
[2020-11-25] MEDS ORDERED: MORPHINE SULFATE 10 MG/ML INJ IV ONE (14:31)
[2020-11-25] MEDS ORDERED: NORMAL SALINE 1000 ML 1,000 ML IV ONE (14:31)
--- NOTE | 2020-11-25 14:33 | ER Document Report ---
ED Medical Screen (RME) - General Stated Complaint: CYST ON BACK Time Seen by Provider: 11/25/20 14:29 Notes: Patient presents with large abscess to left buttock. Patient states that area has been there for the past 4 days. Patient denies any fever. Patient reports area has started to spontaneously drain. Patient denies any underlying medical history. I have greeted and performed a rapid initial assessment of this patient. A comprehensive ED assessment and evaluation of the patient, analysis of test results and completion of the medical decision making process will be conducted by additional ED providers. TRAVEL OUTSIDE OF THE [place] IN LAST 30 DAYS: No - Related Data Allergies/Adverse Reactions: No Known Allergies Allergy (Verified 11/25/20 14:30) Past Medical History - Past Medical History Cardiac Medical History: Denies: Hx Hypertension Renal/ Medical History: Denies: Hx Peritoneal Dialysis - Immunizations Hx Diphtheria, Pertussis, Tetanus Vaccination: Yes Physical Exam - Vital signs Vitals: Temp Pulse Resp BP Pulse Ox 100.1 F 110 H 18 134/79 H 94 11/25/20 14:05 11/25/20 14:05 11/25/20 14:05 11/25/20 14:05 11/25/20 14:05 - General General appearance: Appears well, Alert Notes: Large indurated area to left buttock that does have some spontaneous bloody drainage Course - Vital Signs Vital signs: Temp Pulse Resp BP Pulse Ox 100.1 F 110 H 18 134/79 H 94 11/25/20 14:05 11/25/20 14:05 11/25/20 14:05 11/25/20 14:05 11/25/20 14:05
[2020-11-25 15:30] LABS: ABSOLUTE LYMPHOCYTES (AUTO) 1.5 10^3/uL (0.5-4.7); ABSOLUTE MONOCYTES (AUTO) 1.4 10^3/uL (0.1-1.4); ABSOLUTE NEUT (AUTO) 15.3 10^3/uL (1.7-8.2); BASOPHILS % (AUTO) 0.3 % (0-2); EOSINOPHILS % (AUTO) 0.2 % (0-6); HEMATOCRIT 42.1 % (37.9-51.0); HEMOGLOBIN 14.1 g/dL (13.5-17.0); MEAN CORPUSCULAR HEMOGLOBIN 29.8 pg (27.0-33.4); MEAN CORPUSCULAR HGB CONC 33.4 g/dL (32.0-36.0); MEAN CORPUSCULAR VOLUME 89 fl (80-97); MONOCYTES % (AUTO) 7.8 % (3-13); PLATELET COUNT 147 10^3/uL (150-450); RED BLOOD COUNT 4.72 10^6/uL (4.35-5.55); RED CELL DISTRIBUTION WIDTH 13.6 % (11.5-14.0); SEGMENTED NEUTROPHILS % (AUTO) 83.7 % (42-78); TOTAL CELLS COUNTED % (AUTO) 100 %; WHITE BLOOD COUNT 18.2 10^3/uL (4.0-10.5)
[2020-11-25 15:50] LABS: ALBUMIN 3.9 g/dL (3.5-5.0); ALKALINE PHOSPHATASE 108 U/L (38-126); ANION GAP 10 (5-19); ASPARTATE AMINO TRANSFERASE 32 U/L (17-59); BILIRUBIN,DIRECT 0.3 mg/dL (0.0-0.4); BLOOD UREA NITROGEN 10 mg/dL (7-20); CALCIUM 9.3 mg/dL (8.4-10.2); CARBON DIOXIDE 25 mmol/L (22-30); CHLORIDE 102 mmol/L (98-107); GLUCOSE 114 mg/dL (75-110); POTASSIUM 3.5 mmol/L (3.6-5.0); TOTAL PROTEIN 6.9 g/dL (6.3-8.2)
[2020-11-25] MEDS ORDERED: LIDOCAINE 1%/EPINEPHRINE INJ 20 ML VIAL INJ ONE (16:08)
[2020-11-25] MEDS ORDERED: KETOROLAC TROMETHAMINE INJ/PF 30 MG/1 ML SDV IV ONE (17:20)
[2020-11-25] MEDS ORDERED: AMPICILLIN SOD/SULBACTAM 3 GM VIAL IV ONE (17:21)
--- NOTE | 2020-11-25 17:27 | ER Document Report ---
ED General - General Chief Complaint: Abscess Stated Complaint: CYST ON BACK Time Seen by Provider: 11/25/20 14:29 Mode of Arrival: Ambulatory Information source: Patient, Relative TRAVEL OUTSIDE OF THE [place] IN LAST 30 DAYS: No - HPI Notes: Patient presents with a several day history of an abscess on his left buttock. It has been draining this afternoon in the car as he drove over here. He and the relative accompanying him admit that they have been squeezing this at home and getting some discharge out of it but then it keeps getting bigger and big alyssa. Is more more painful. He has low-grade temperature now. He is also noticed a small infected area on the left anterior abdominal wall that is separate from this. He has had these before. He has had previous incision and drainage procedures. He is not currently on any other anticoagulants. He is not on any antibiotics. He is otherwise in his usual state of health. - Related Data Allergies/Adverse Reactions: No Known Allergies Allergy (Verified 11/25/20 14:30) Past Medical History - General Information source: Patient - Social History Smoking Status: Current Every Day Smoker Chew tobacco use (# tins/day): No Frequency of alcohol use: Occasional Family History: Reviewed & Not Pertinent Patient has homicidal ideation: No - Medical History Medical History: Other Notes: Patient reports previous cyst requiring I&D. Otherwise healthy on no meds. - Past Medical History Cardiac Medical History: Denies: Hx Hypertension Renal/ Medical History: Denies: Hx Peritoneal Dialysis - Immunizations Hx Diphtheria, Pertussis, Tetanus Vaccination: Yes Review of Systems - Review of Systems Notes: All other systems reviewed are negative or noncontributory except as noted in history of present illness. Physical Exam - Vital signs Vitals: Temp Pulse Resp BP Pulse Ox 100.1 F 110 H 18 134/79 H 94 11/25/20 14:05 11/25/20 14:05 11/25/20 14:05 11/25/20 14:05 11/25/20 14:05 - Notes Notes: General: Well-developed uncomfortable male no acute distress. Vital signs and nursing chief complaint are reviewed. Skin: Examination left buttock reveals a cutaneous abscess in the mid buttock. This is not a perirectal abscess. It measures approximately 8 cm in diameter and is palpably tender with a draining sinus in the center. There is some surrounding erythema is markedly indurated. The patient also shows to be a small cyst on his left lower quadrant of his anterior abdominal wall. This is apparently a subcutaneous cyst that is slightly tender and slightly erythemato us. It does not have a draining tract or any sort of pointing sinus at this point. It does not appear to be amenable to incision and drainage. The cyst on his buttock though clearly needs to be drained. Course - Re-evaluation Re-evalutation: 11/25/20 18:23 Patient was reassessed at 1820 hrs. He is resting comfortably. He tolerated his antibiotic infusion. Packing is draining a small amount of serosanguineous drainage. We will discharge him home on Augmentin and give him a 6 pack of hydrocodone for pain control overnight. He should remove his packing after 48 hours. Follow-up should be either with his primary care physician or here in the emergency department as needed. - Vital Signs Vital signs: Temp Pulse Resp BP Pulse Ox 100.1 F 110 H 18 134/79 H 94 11/25/20 14:05 11/25/20 14:05 11/25/20 14:05 11/25/20 14:05 11/25/20 14:05 - Laboratory Results Result Diagrams: 11/25/20 15:04 11/25/20 15:04 Laboratory Results Interpreted: 11/25/20 11/25/20 15:04 15:04 WBC 18.2 H Plt Count 147 L Lymph % (Auto) 8.0 L Absolute Neuts (auto) 15.3 H Seg Neutrophils % 83.7 H Potassium 3.5 L Glucose 114 H Critical Laboratory Results Reviewed: No Critical Results - Radiology Results Critical Radiology Results Reviewed: No Critical Results Procedures - Incision and Drainage Left Buttock Time completed: 17:26 Type: Simple Anesthetic type: 1% Lidocaine w/epi mL's of anesthetic: 10 Blade size: 11 I&D procedure: Betadine prep applied, Iodoform packing placed Incision Method: Incision made by scalpel Amount/type of drainage: Purulent drainage, 10 mL. Notes: 11/25/20 17:26 I discussed the risk benefits and alternatives with the patient and answered all his questions. He has informed consent to proceed was obtained and the appropriate forms were signed. I prepped the area with alcohol initially and anesthetized it using 10 mL of 1% lidocaine with epinephrine to create a field block with a local anesthetic block over the top. This was left to dwell for approximately 15 minutes. I then returned and prepped the area with Betadine. I draped in the usual sterile fashion. I made a single stab incision horizontally through the draining area approximately 1.5 cm long. Approximately 10 mL of drainage were obtained. The area was irrigated and manipulated and then probed using a hemostat to break up any loculations. 2 or 3 cc more of drainage was obtained. Iodoform packing was then inserted. Nursing staff was instructed to place a sterile dressing. Patient tolerated the procedure well. Adult Front & Back picture: 1 - 1.5 cm I&D incision Discharge - Discharge Clinical Impression: Abscess of left buttock Condition: Good Disposition: HOME, SELF-CARE Instructions: Abscess ([facility]), Augmentin ([facility]), Post Incision and Drainage Additional Instructions: You may change your dressing as often as you see fit. Expect that there will be some bloody and purulent drainage for a couple of days. Leave the packing in for 48 hours or at least a minimum of 24 hours. At the end of 48 hours just gently grasped the end of the ribbon and pull it out until it is all out. Soak in a tub of warm water if you have a bathtub available and massage the area twice a day. This will help keep it clean and promote drainage. A prescription for an antibiotic called Augmentin has been sent to your pharmacy. Please pick that up in the morning and take it according to label directions until it is all gone. You have been sent home with a few tablets of a narcotic pain medicine called hydrocodone to use for the next 24 hours. Once that is gone Tylenol or ibuprofen should be sufficient. Return if any other concerning symptoms develop. Prescriptions: Amoxicillin/Potassium Clav [Augmentin 875-125 Tablet] 1 tab PO BID #20 tab
[2020-11-25] MEDS ORDERED: HYDROCODONE/ACETAMINOPHEN 5-325 MG (6 TAB/ER DISP) PO PRN (18:30)
[2020-11-25 18:47] VITALS: BP 140/84
== END 2020-11-25 18:45 | disposition home or self-care (01) ==
LOC: ER 13:55
DX: L02.31 Cutaneous abscess of buttock (principal); F17.200 Nicotine dependence, unspecified, uncomplicated
CPT/HCPCS: 99284; 96361; 96374; 96375; 36415; 87040; 87070; 87205; 85025; 87075; 87077; 80053; 87186; 10060; J0295; J3490; J1885; J2270; J7030